=== PATIENT | male | born 1990 | race Caucasian/White ===

== ENCOUNTER 2023-11-07 13:50 | Day surgery (SDC) | payer OTHER ==
[2023-11-07] MEDS ORDERED: XYLOCAINE-MPF 1% 5ML SDV IJ ONE (13:51)
[2023-11-07] MEDS ORDERED: Depo-Medrol 40 MG/ML IM ONE (13:51)
[2023-11-07] MEDS ORDERED: Sodium Chloride 0.9(Preservative Free) 10 ML IJ ONE (13:51)
[2023-11-07] MEDS ORDERED: Lactated Ringers 1,000 ML IV ONE (15:19)
[2023-11-07] MEDS ORDERED: DIPRIVAN 200 MG/20 ML IV ONE ×2 (15:19→15:32)
--- NOTE | 2023-11-07 17:37 | XRAY ---
Indication: Lumbar MYRANDA. Intraoperative fluoroscopy provided for 32 seconds. 2 digital spot images submitted for interpretation demonstrates posterior needle tip projecting just posterior to L4-L5 interspace. Small amount of contrast injected for needle tip placement. Correlate with intraoperative findings/report.
--- NOTE | 2023-11-08 10:56 | XRAY ---
32 seconds of fluoroscopy was used in surgery for a lumbar MYRANDA.
== END 2023-11-07 15:55 | disposition home or self-care (01) ==
LOC: SDC-PAIN 13:50
PROVIDERS: ATTEND Psychiatry & Neurology Pain Medicine
DX: M54.16 Radiculopathy, lumbar region (principal)
CPT/HCPCS: 62323; 72100; 77003; J1030; J2704; Q9966

== ENCOUNTER 2023-12-12 15:50 | Day surgery (SDC) | payer OTHER ==
[2023-12-12] MEDS ORDERED: LIDOCAINE HCL 1% 50 MG/5 ML VL PF IJ ONE (15:51)
[2023-12-12] MEDS ORDERED: Depo-Medrol 40 MG/ML IM ONE (15:51)
[2023-12-12] MEDS ORDERED: BUPIVACAINE 0.5% VIAL IJ ONE (15:51)
--- NOTE | 2023-12-12 18:37 | XRAY ---
Indication: Right shoulder injection. Intraoperative fluoroscopy provided for 10 seconds. Single digital spot image submitted for interpretation demonstrates needle tip projecting over right glenohumeral joint superiorly. Small amount of contrast injected for needle tip placement. Correlate with intraoperative findings/report.
--- NOTE | 2023-12-12 18:39 | XRAY ---
Indication: Left shoulder injection. Intraoperative fluoroscopy provided for 14 seconds. Single digital spot image submitted for interpretation demonstrates needle tip projecting over left glenohumeral joint superiorly. Small amount of contrast injected for needle tip placement. Correlate with intraoperative findings/report.
--- NOTE | 2023-12-13 12:45 | XRAY ---
10 seconds of fluoroscopy was used in surgery for a right intra-articular shoulder injection.
--- NOTE | 2023-12-13 12:46 | XRAY ---
14 seconds of fluoroscopy was used in surgery for a left intra-articular shoulder injection.
== END 2023-12-12 18:00 | disposition home or self-care (01) ==
LOC: SDC-PAIN 15:50
PROVIDERS: ATTEND Psychiatry & Neurology Pain Medicine
DX: M19.012 Primary osteoarthritis, left shoulder (principal); M19.011 Primary osteoarthritis, right shoulder
CPT/HCPCS: 20610; 73030; 77002; J1030; J2001; Q9966